=== PATIENT | female | born 1970 | race Hispanic/Latino ===

== ENCOUNTER 2018-01-25 08:51 | Inpatient (IN) | payer BC ==
[2018-01-25] MEDS ORDERED: Sodium Chloride 0.9% 1,000 ML IV STA (09:34)
--- NOTE | 2018-01-25 10:04 | ED PDOC ---
HPI: Abdomen Time Seen by Provider: 01/25/18 09:07 Chief Complaint (Nursing): Abdominal Pain Chief Complaint (Provider): Abdominal Pain History Per: Patient History/Exam Limitations: no limitations Onset/Duration Of Symptoms: Hrs (this morning) Additional Complaint(s): Patient is a 47 y/o female with no significant past medical history who presents to the ED complaining of right sided abdominal pain, that was sudden and started earlier this morning. Patient reports the pain starts in her right abdomen and radiates to her back. Patient also states that she has nausea and 3 episodes of non bloody vomiting. She denies any urinary symptoms, shortness of breath, chest pain, or diarrhea. Additionally, patient is complaining of cold-like symptoms such as cough, congestion and runny nose, since yesterday. No dysuria. No weakness. PMD: Dr. Candelaria Past Medical History Reviewed: Historical Data, Nursing Documentation, Vital Signs Vital Signs: Last Vital Signs Temp Pulse Resp BP 105/59 L 01/25/18 09:04 Pulse Ox 97 01/25/18 09:04 - Medical History PMH: Anxiety Other PMH: kidney stones - Surgical History Other surgeries: Hysterectomy - Family History Family History: States: Unknown Family Hx - Allergies Allergies/Adverse Reactions: Allergies Allergy/AdvReac Type Severity Reaction Status Date / Time Sulfa (Sulfonamide Allergy Mild RASH Verified 01/25/18 09:04 Antibiotics) Review of Systems ROS Statement: Except As Marked, All Systems Reviewed And Found Negative ENT: Positive for: Nose Discharge (runny nose), Nose Congestion Cardiovascular: Negative for: Chest Pain Respiratory: Positive for: Cough. Negative for: Shortness of Breath Gastrointestinal: Positive for: Nausea, Vomiting, Abdominal Pain. Negative for: Diarrhea Genitourinary Female: Negative for: Dysuria, Frequency, Incontinence Physical Exam - Reviewed Nursing Documentation Reviewed: Yes Vital Signs Reviewed: Yes - Physical Exam Appears: Positive for: Non-toxic, No Acute Distress Head Exam: Positive for: ATRAUMATIC, NORMAL INSPECTION, NORMOCEPHALIC Skin: Positive for: Normal Color, Warm, DRY Eye Exam: Positive for: EOMI, Normal appearance, PERRL ENT: Positive for: Nasal Congestion Neck: Positive for: Normal, Painless ROM, Supple Cardiovascular/Chest: Positive for: Regular Rate, Rhythm. Negative for: Murmur Respiratory: Positive for: Normal Breath Sounds. Negative for: Respiratory Distress Gastrointestinal/Abdominal: Positive for: Soft, Tenderness (mild suprapubic tenderness) Back: Positive for: Normal Inspection. Negative for: L CVA Tenderness, R CVA Tenderness Extremity: Positive for: Normal ROM. Negative for: Pedal Edema, Deformity Neurologic/Psych: Positive for: Alert, Oriented. Negative for: Motor/Sensory Deficits - Laboratory Results Result Diagrams: 01/25/18 09:56 01/25/18 09:56 Interpretation Of Abn Labs: no acute Urine dip results: Negative for: Leukocyte Esterase, Nitrate - ECG O2 Sat by Pulse Oximetry: 97 (RA) Pulse Ox Interpretation: Normal - CT Scan/US ct Other Rad Studies (CT/US): Read By Radiologist Other Rad Interpretation: can't see appendix; no stone - Progress ED Course And Treament: 1300: Surgery paged to evaluate pt. 1517: Surgery will take pt. to the OR for appendicitis. Pt. agrees. NPO. Will give zosyn. Medical Decision Making Medical Decision Making: Time: 09:34 Initial Impression: Abdominal pain and cough with congestion Initial Plan: --CT Abd and Pelvis --BMP --Urine dipstick --CBC w/ diff --IV fluids --Toradol 15 mg --Zofran 4 mg --Influenza A B Scribe Attestation: Documented by Andi De La Garza acting as a scribe for Enzo Howe MD Provider Scribe Attestation: All medical record entries made by the Scribe were at my direction and personally dictated by me. I have reviewed the chart and agree that the record accurately reflects my personal performance of the history, physical exam, medical decision making, and the department course for this patient. I have also personally directed, reviewed, and agree with the discharge instructions and disposition. Disposition - Clinical Impression Clinical Impression: Appendicitis - Patient ED Disposition Is Patient to be Admitted: Yes Counseled Patient/Family Regarding: Studies Performed, Diagnosis - Disposition Disposition Time: 15:20 Condition: FAIR - Pt Status Changed To: Hospital Disposition Of: Inpatient - Admit Certification Admit to Inpatient:: After my assessment, the patient will require hospitalization for at least two midnights. This is because of the severity of symptoms shown, intensity of services needed, and/or the medical risk in this patient being treated as an outpatient. - POA Present On Arrival: None
[2018-01-25 10:25] LABS: BASO # 0.1 K/uL (0.0-0.2); BASO % 0.5 % (0.0-2.0); EOS # 0.1 K/uL (0.0-0.7); EOS % 0.6 % (0.0-4.0); HEMOGLOBIN 13.3 g/dL (12.0-16.0); LYMPH # 0.5 K/uL (1.0-4.3); LYMPH % 4.9 % (20.0-40.0); MEAN CELL VOLUME 90.5 fl (81.0-99.0); MEAN CORPUSCULAR HEMOGLOBIN 31.6 pg (27.0-31.0); MEAN CORPUSCULAR HGB CONC 34.9 g/dL (33.0-37.0); MEAN PLATELET VOLUME 8.2 fl (7.2-11.7); MONO # 0.5 K/uL (0.0-0.8); MONO % 4.6 % (0.0-10.0); NEUT # 8.8 K/uL (1.8-7.0); NEUT % 89.4 % (50.0-75.0); PLATELET COUNT 211 K/uL (130-400); RBC 4.21 Mil/uL (3.80-5.20); RED CELL DISTRIBUTION WIDTH 13.1 % (11.5-14.5); WHITE BLOOD COUNT 9.9 K/uL (4.8-10.8)
[2018-01-25 10:36] LABS: BLOOD UREA NITROGEN 10 mg/dl (7-17); GFR NON-AFRICAN AMERICAN > 60
--- NOTE | 2018-01-25 12:24 | CT ---
Date of service: 01/25/2018 PROCEDURE: CT Abdomen and Pelvis without intravenous contrast HISTORY: R/O stone COMPARISON: Comments: Study marked for PA review . TECHNIQUE: Technique. Contrast dose: None Radiation dose: Total exam DLP = 526 mGy-cm. This CT exam was performed using one or more of the following dose reduction techniques: Automated exposure control, adjustment of the mA and/or kV according to patient size, and/or use of iterative reconstruction technique. FINDINGS: LOWER THORAX: Unremarkable. LIVER: Unremarkable. No gross lesion or ductal dilatation. GALLBLADDER AND BILE DUCTS: Unremarkable. PANCREAS: Unremarkable. No gross lesion or ductal dilatation. SPLEEN: Unremarkable. ADRENALS: Unremarkable. No mass. KIDNEYS AND URETERS: Unremarkable. No hydronephrosis. No obstructing renal or ureteral calculi VASCULATURE: Bilateral hemipelvic phleboliths. No aortic aneurysm. BOWEL: Unremarkable. No obstruction. No gross mural thickening. APPENDIX: The appendix is not identified with certainty. There are tubular right hemipelvic findings probably relating to collapsed distal small bowel loops. However clinical correlation is needed as a normal-appearing appendix cannot be from this. PERITONEUM: Unremarkable. No free fluid. No free air. LYMPH NODES: Unremarkable. No enlarged lymph nodes. BLADDER: Unremarkable. REPRODUCTIVE: Unremarkable. BONES: No acute fracture. OTHER FINDINGS: None. IMPRESSION: No obstructing urolithiasis. No hydronephrosis or hydroureter. Indeterminate 2 tubular structures in the right hemipelvis; possibly relating to unopacified decompressed small bowel loops. Clinical correlation and close follow-up is essential as a normal separate appearing right appendix cannot be identified with certainty. Comments: Study marked for PA review .
[2018-01-25 13:17] LABS: BANDS 2 % (0-2); LYMPHOCYTE 4 % (20-50); MONOCYTE 2 % (0-10); NEUTROPHIL 92 % (42-75); PLATELET ESTIMATE NORMAL (NORMAL); TOTAL CELLS COUNTED 100
[2018-01-25] MEDS ORDERED: Piperacillin/Tazobact 3.375 GM in Sodium Chloride 0.9% 100 ML IV STA (15:19)
[2018-01-25] MEDS ORDERED: Piperacillin/Tazobact 3.375 gm Inj IVPB ONE (15:38)
--- NOTE | 2018-01-25 16:03 | CP.PCM.HP ---
History of Present Illness - History of Present Illness History of Present Illness: Surgery: Dr. Ruiz CC: Abd pain HPI: 47F presents with abd pain starting this morning. Pain was initially in RUQ, but migrated to RLQ. Pain is constant and described as cramp like. Pt has nausea with 3 episodes of vomiting, non-bloody. Denies diarrhea. She reports subjective fever and chills. She has no dysuria/hematuria, or vaginal discharge. PMH: anxiety PSH: Hysterectomy Meds: MAR reviewed ALL: Sulfa Social: +Tobacco, wine, no drugs Fhx: Non-contributory Present on Admission - Present on Admission Any Indicators Present on Admission: No Review of Systems - Review of Systems All systems: reviewed and no additional remarkable complaints except (HPI) Past Patient History - Past Social History Smoking Status: Current Some Days Smoker - PSYCHIATRIC Hx Anxiety: Yes - SURGICAL HISTORY Hx Hysterectomy: Yes - ANESTHESIA Hx Anesthesia: Yes Hx Anesthesia Reactions: No Meds Allergies/Adverse Reactions: Allergies Allergy/AdvReac Type Severity Reaction Status Date / Time Sulfa (Sulfonamide Allergy Mild RASH Verified 01/25/18 09:04 Antibiotics) Physical Exam - Constitutional Appears: Non-toxic, No Acute Distress - Head Exam Head Exam: ATRAUMATIC, NORMOCEPHALIC - Eye Exam Eye Exam: EOMI - ENT Exam ENT Exam: Mucous Membranes Moist - Neck Exam Neck exam: Positive for: Full Rom - Respiratory Exam Respiratory Exam: NORMAL BREATHING PATTERN. absent: Accessory Muscle Use, Respiratory Distress - GI/Abdominal Exam GI & Abdominal Exam: Rebound (+Rovsing), Soft, Tenderness (RLQ). absent: Distended, Firm, Guarding, Rigid - Extremities Exam Extremities exam: Negative for: calf tenderness, pedal edema - Neurological Exam Neurological exam: Alert, Oriented x3 - Psychiatric Exam Psychiatric exam: Normal Affect, Normal Mood Results - Vital Signs Recent Vital Signs: Last Vital Signs Temp 98.4 F 01/25/18 14:05 Pulse 72 01/25/18 14:05 Resp 16 01/25/18 14:05 BP 115/73 01/25/18 14:05 Pulse Ox 97 01/25/18 15:20 - Labs Result Diagrams: 01/25/18 09:56 01/25/18 09:56 Labs: Laboratory Results - last 24 hr 01/25/18 01/25/18 01/25/18 09:52 09:56 09:56 WBC 9.9 RBC 4.21 Hgb 13.3 Hct 38.1 MCV 90.5 MCH 31.6 H MCHC 34.9 RDW 13.1 Plt Count 211 MPV 8.2 Neut % (Auto) 89.4 H Lymph % (Auto) 4.9 L [place] % (Auto) 4.6 Eos % (Auto) 0.6 Baso % (Auto) 0.5 Neut # (Auto) 8.8 H Lymph # (Auto) 0.5 L [place] # (Auto) 0.5 Eos # (Auto) 0.1 Baso # (Auto) 0.1 Neutrophils % (Manual) 92 H Band Neutrophils % 2 Lymphocytes % (Manual) 4 L Monocytes % (Manual) 2 Platelet Estimate Normal RBC Morphology Normal Sodium 136 Potassium 3.8 Chloride 103 Carbon Dioxide 28 Anion Gap 9 L BUN 10 Creatinine 0.6 L Est GFR ( Amer) > 60 Est GFR (Non-Af Amer) > 60 Random Glucose 115 H Calcium 9.0 Influenza Typ A,B (EIA) Negative for flu a/b - Imaging and Cardiology CT scan - abdomen Status: Image reviewed by me, Report reviewed by me Assessment & Plan - Assessment and Plan (Free Text) Assessment: 47F w. RLQ pain consistent w. appendicitis -NPO -IVF -abx -OR tonight for lap appy, consent in chart, risks benefits d/w pt -d/w attending Zemaitis PGY4 Decision To Admit - Pt Status Changed To: Hospital Disposition Of: Inpatient - Admit Certification Admit to Inpatient:: After my assessment, the patient will require hospitalization for at least two midnights. This is because of the severity of symptoms shown, intensity of services needed, and/or the medical risk in this patient being treated as an outpatient. - . Bed Request Type: Med/Surg Admitting Physician: Ellis Mariee
[2018-01-25 16:15] LABS: VENOUS BLOOD GAS BASE EXCESS 0.8 mmol/L (0.0-2.0); VENOUS BLOOD GAS PCO2 49 mmHg (40-60); VENOUS BLOOD GAS PO2 17 mm/Hg (30-55); VENOUS BLOOD PH 7.35 (7.32-7.43)
[2018-01-25] MEDS ORDERED: Lactated Ringer's 1,000 ML IV SCH (16:30)
[2018-01-25] MEDS ORDERED: Morphine 4 MG/ML VIAL ONE (16:42)
[2018-01-25] MEDS ORDERED: Succinylcholine 200 mg/10 ml Inj IV ONE (18:27)
[2018-01-25] MEDS ORDERED: Propofol 10 mg/ml Inj (20 ML) ONE (18:27)
[2018-01-25] MEDS ORDERED: Lidocaine 4% (Laryng-O-Jet) Kit MM ONE (18:27)
[2018-01-25] MEDS ORDERED: Rocuronium 10 mg/ml (5 ml) ONE (18:27)
[2018-01-25] MEDS ORDERED: Lidocaine 1% w Epi 1:100,000 Inj ONE (18:48)
[2018-01-25] MEDS ORDERED: Bupivacaine HCl 0.25% PF (30 ml) Inj ONE (18:48)
[2018-01-25] MEDS ORDERED: Lactated Ringer's 1,000 ML IV ONE ×2 (19:30→20:07)
[2018-01-25] MEDS ORDERED: Midazolam 2 MG/2 ML VIAL ONE (19:37)
[2018-01-25] MEDS ORDERED: Dexamethasone 4 mg/1 ml ONE (19:42)
[2018-01-25] MEDS ORDERED: Neostigmine 1:1000 (1 mg/ml) Inj ONE (20:27)
--- NOTE | 2018-01-25 21:12 | PCM.SURG1 ---
Surgeon's Initial Post Op Note - Surgeon's Notes Surgeon: Dr. Mariee [employer] Operations Coordinator: Dr. Suárez PGY1 Type of Anesthesia: General Endo Pre-Operative Diagnosis: Appendicitis Operative Findings: see operative dictation note Post-Operative Diagnosis: Appendicitis Operation Performed: laparascopic appendectomy Specimen/Specimens Removed: appendix Estimated Blood Loss: EBL {In ML}: 5 Blood Products Given: N/A Drains Used: No Drains Post-Op Condition: Good Date of Surgery/Procedure: 01/25/18 Time of Surgery/Procedure: 21:12
[2018-01-25] MEDS: Piperacillin/Tazobact 3.375 GM in Sodium Chloride 0.9% 100 ML IVPB SCH (21:48)
[2018-01-26] MEDS: Piperacillin/Tazobact 3.375 GM in Sodium Chloride 0.9% 100 ML IVPB SCH (04:18)
[2018-01-26] MEDS: Lactated Ringer's 1,000 ML IV SCH ×2 (04:18→07:35)
--- NOTE | 2018-01-26 07:56 | CARD ---
APPROVED REPORT Date of service: 01/25/2018 EKG Measurement Heart [id number] <Conclusion> Normal sinus rhythm Normal ECG
[2018-01-26 08:24] VITALS: BP 98/53; PULSE 59; RESP 19; TEMP 97.6; O2SAT 98
--- NOTE | 2018-01-26 08:51 | CP.PCM.DIS ---
Provider - Provider Date of Admission: 01/25/18 15:18 Attending physician: Ellis Mariee MD Time Spent in preparation of Discharge (in minutes): 30 Diagnosis - Discharge Diagnosis (1) Appendicitis Status: Acute Hospital Course - Lab Results Lab Results: Most Recent Lab Values WBC 9.9 K/uL (4.8-10.8) 01/25/18 09:56 RBC 4.21 Mil/uL (3.80-5.20) 01/25/18 09:56 Hgb 13.3 g/dL (12.0-16.0) 01/25/18 09:56 Hct 38.1 % (34.0-47.0) 01/25/18 09:56 MCV 90.5 fl (81.0-99.0) 01/25/18 09:56 MCH 31.6 pg (27.0-31.0) H 01/25/18 09:56 MCHC 34.9 g/dL (33.0-37.0) 01/25/18 09:56 RDW 13.1 % (11.5-14.5) 01/25/18 09:56 Plt Count 211 K/uL (130-400) 01/25/18 09:56 MPV 8.2 fl (7.2-11.7) 01/25/18 09:56 Neut % (Auto) 89.4 % (50.0-75.0) H 01/25/18 09:56 Lymph % (Auto) 4.9 % (20.0-40.0) L 01/25/18 09:56 [place] % (Auto) 4.6 % (0.0-10.0) 01/25/18 09:56 Eos % (Auto) 0.6 % (0.0-4.0) 01/25/18 09:56 Baso % (Auto) 0.5 % (0.0-2.0) 01/25/18 09:56 Neut # (Auto) 8.8 K/uL (1.8-7.0) H 01/25/18 09:56 Lymph # (Auto) 0.5 K/uL (1.0-4.3) L 01/25/18 09:56 [place] # (Auto) 0.5 K/uL (0.0-0.8) 01/25/18 09:56 Eos # (Auto) 0.1 K/uL (0.0-0.7) 01/25/18 09:56 Baso # (Auto) 0.1 K/uL (0.0-0.2) 01/25/18 09:56 Neutrophils % (Manual) 92 % (42-75) H 01/25/18 09:56 Band Neutrophils % 2 % (0-2) 01/25/18 09:56 Lymphocytes % (Manual) 4 % (20-50) L 01/25/18 09:56 Monocytes % (Manual) 2 % (0-10) 01/25/18 09:56 Platelet Estimate Normal (NORMAL) 01/25/18 09:56 RBC Morphology Normal (NORMAL) 01/25/18 09:56 pO2 17 mm/Hg (30-55) L 01/25/18 16:07 VBG pH 7.35 (7.32-7.43) 01/25/18 16:07 VBG pCO2 49 mmHg (40-60) 01/25/18 16:07 VBG HCO3 23.5 mmol/L 01/25/18 16:07 VBG Total CO2 28.6 mmol/L (22-28) H 01/25/18 16:07 VBG O2 Sat (Calc) 22.0 % (40-65) L 01/25/18 16:07 VBG Base Excess 0.8 mmol/L (0.0-2.0) 01/25/18 16:07 VBG Potassium 3.5 mmol/L (3.6-5.2) L 01/25/18 16:07 Sodium 136.0 mmol/L (132-148) 01/25/18 16:07 Chloride 104.0 mmol/L (98-107) 01/25/18 16:07 Glucose 108 mg/dL (65-105) H 01/25/18 16:07 Lactate 0.7 mmol/L (0.7-2.1) 01/25/18 16:07 FiO2 21.0 % 01/25/18 16:07 Sodium 136 mmol/l (132-148) 01/25/18 09:56 Potassium 3.8 MMOL/L (3.6-5.0) 01/25/18 09:56 Chloride 103 mmol/L (98-107) 01/25/18 09:56 Carbon Dioxide 28 mmol/L (22-30) 01/25/18 09:56 Anion Gap 9 (10-20) L 01/25/18 09:56 BUN 10 mg/dl (7-17) 01/25/18 09:56 Creatinine 0.6 mg/dl (0.7-1.2) L 01/25/18 09:56 Est GFR ( Amer) > 60 01/25/18 09:56 Est GFR (Non-Af Amer) > 60 01/25/18 09:56 Random Glucose 115 mg/dL (65-105) H 01/25/18 09:56 Calcium 9.0 mg/dL (8.4-10.2) 01/25/18 09:56 Venous Blood Potassium 3.5 mmol/L (3.6-5.2) L 01/25/18 16:07 Influenza Typ A,B (EIA) Negative for flu a/b (NEGATIVE) 01/25/18 09:52 - Hospital Course Hospital Course: 47F presented w. acute appendicitis, underwent lap appy. Post-op course uncomplicated. Pain controlled, tolerating diet, no N/V. Ambulating w. out difficulty. Pt clear for D/C from surgical standpoint. Discharge Exam - Head Exam Head Exam: ATRAUMATIC, NORMOCEPHALIC - Eye Exam Eye Exam: EOMI - ENT Exam ENT Exam: Mucous Membranes Moist - Neck Exam Neck exam: Full Rom - Respiratory Exam Respiratory Exam: NORMAL BREATHING PATTERN. absent: Accessory Muscle Use, Respiratory Distress - Cardiovascular Exam Cardiovascular Exam: REGULAR RHYTHM - GI/Abdominal Exam GI & Abdominal Exam: Soft, Tenderness (Nicole-incisional). absent: Distended, Firm, Guarding, Rebound, Rigid Additional comments: incisions C/D/I - Neurological Exam Neurological exam: Alert, Oriented x3 - Psychiatric Exam Psychiatric exam: Normal Affect, Normal Mood - Skin Skin Exam: Dry, Normal Color, Warm Discharge Plan - Discharge Medications Prescriptions: Ibuprofen 600 mg PO Q6 PRN #20 tablet PRN Reason: Pain, Moderate (4-7) Levofloxacin [Levaquin] 500 mg PO DAILY #7 tablet Metronidazole [Flagyl] 500 mg PO Q8H #21 tablet - Follow Up Plan Condition: STABLE Disposition: HOME/ ROUTINE Patient education suggested?: Yes Instructions: Appendectomy, Laparoscopic Surgery, Appendicitis, Adult (DC) Additional Instructions: Follow up with Dr. Mariee in 1 week Take medication as instructed No heavy lifting >15-20lbs for 4 weeks Referrals: Ellis Mariee MD [Staff Provider] -
--- NOTE | 2018-03-09 17:49 | OP ---
PROCEDURE DATE: 01/25/2018 PREOPERATIVE DIAGNOSES: 1. Acute appendicitis. 2. Incarcerated umbilical hernia. POSTOPERATIVE DIAGNOSES: 1. Acute appendicitis. 2. Incarcerated umbilical hernia. SURGERIES: 1. Laparoscopic appendectomy. 2. Laparoscopic enterolysis. 3. Laparoscopic partial cecectomy. 4. Repair of incarcerated umbilical hernia. 5. Bilateral ultrasound-guided transversus abdominis plane block anesthesia. SURGEON: Ellis Mariee MD ANESTHESIA: General endotracheal. ESTIMATED BLOOD LOSS: 10 mL. INTRAVENOUS FLUIDS: 1 liter of Ringer's lactate. COMPLICATIONS: None. DRAINS: None. IMPLANTS: None. DISPOSITION: Stable, extubated to recovery room. CLINICAL INFORMATION: Mr. Dorantes is a 47-year-old male who experienced a acute onset right lower quadrant abdominal pain radiating to the umbilicus and the right side of the pelvis over the last 48 hours, which progressively escalated, then was accompanied by nausea, malaise, and inability to tolerate p.o. Her symptoms progressed to the point that she visited the [facility] Emergency Room for further care. Upon arrival, the clinical exam was significant for right lower quadrant tenderness and guarding and less so in the periumbilical area. Also was found to have a small incarcerated umbilical hernia. The white blood count was elevated and a CT scan of the abdomen and pelvis showed that the patient had acute appendicitis. Based on these findings, the patient was taken emergently to the operating room for further surgical intervention. INTRAOPERATIVE FINDINGS: The findings appeared to be enlarged, elongated, thickened with inflamed mesoappendix extending all the way to the base of the appendix and the surrounding cecum. There were multiple adhesions over the previous surgeries in the pelvis. The patient also had incarcerated umbilical hernia with preperitoneal fat and omental contents. DESCRIPTION OF THE SURGERY: The patient was brought to the operating room, placed on the operating table in the supine position. After smooth induction of general endotracheal anesthesia, Venodyne boots were placed in both legs, and prophylactic IV antibiotics were given. The entire abdomen was prepped and draped in the usual sterile fashion. The area right adjacent to the umbilicus and inferior to that over the incarcerated umbilical hernia was infiltrated with local anesthetic, which comprised of 0.5% Marcaine and 1% lidocaine with epinephrine in equal volumes. A 15-blade was used to perform a vertical incision with sign of inferior border of umbilicus and extending enough to three quater of an inch ____. The incision was brought down to the subcutaneous tissue using Bovie electrocautery. Dissection continued until the hernia sac of the incarcerated umbilical hernia was identified. It was freed from its surrounding attachments to the subcutaneous fat and incised. Its contents mainly preperitoneal fat and omentum were freed from its attachments to the inner surface of the hernia sac and returned back to the peritoneal cavity. A 0-Vicryl stitch was placed on each side of the incised fascia. A Naranjo trocar was inserted under direct visualization. The obturator was removed. The port was secured to the 0-Vicryl stay sutures and was connected to the port and pneumoperitoneum up to 15 mmHg was generated. The patient's position was changed to Trendelenburg with the left side down exposing the right lower quadrant. A 10-mm 30 degree laparoscopic video camera was inserted, and the abdomen was inspected. There are dense adhesions in the pelvic and right lower quadrant area. The appendix appeared to be partly concealed by the cecum, terminal ileum and the omentum adherent to the right lateral abdominal wall. It can be partly visualized and appeared to be thickened, inflamed and large with inflamed mesoappendix and inflammation and the infection extending all the way to the base of the appendix and the surrounding cecum. Three 5-mm ports were inserted in the lower abdomen after infiltrating the skin with the same local anesthetic and incising it with a #15-blade. Through the inferior port, endograsper and the 5-mm LigaSure alternating with a EndoSure ___ Bovie electrocautery were used to take down all the adhesions from the right side of the pelvis and detaching the appendix and the cecum from its attachment to the right lateral abdominal wall. By doing so and then taking down the adhesions from the omentum, the cecum and terminal ileum the appendix was visualized as well as mesoappendix in its entire length. The appendix appeared to be enlarged, distended, elongated and inflamed with a corresponding mesoappendix also being significantly inflamed and the infection of the inflammation extending all the way to the base of the appendix and further into the surrounding cecum. The 5 mm LigaSure was used to secure the mesoappendix in the sequential fashion all the way to the base of the appendix and the cecum. The camera was switched to a 5-mm 30-degree and inserted through the left lower quadrant port. The appendix was grasped from its mid portion using endograsper were retracted upwards and outwards exposing its base on the surrounding cecum. A 45 mm Endo CAMRYN was inserted through the infraumbilical port and three staple lines and one staple line was fired across the base of the appendix and surrounding cecum when encompassing part of the cecum and two more were necessary to ensure that the adequate cecum surrounding the area of the inflamed appendix were appeared healthy was included in this person. The specimen was placed in the Endobag, removed from the operating field and sent to pathology for appropriate label and for permanent sections. The abdomen was irrigated with copious amount of warm normal saline. The area of bleeding from the mesoappendix was secured with a 5 mm titanium clips. Again the abdomen was irrigated. There was no evidence of continual bleeding or sulcus discharge from the staple line. The infraumbilical port was removed, and the fascial defect from the incarcerated umbilical hernia and was closed with interrupted 0 Vicryl sutures in a tension-free fashion. The integrity of the fascia closure was checked by inserting a 5-mm 30-degree laparoscopic video camera through the left lower quadrant port. There was also confirmed that there was no evidence of bleeding on the port side and entrapment of bowel or omental. The remaining two 5-mm ports were removed under direct laparoscopic visualization, and there was no evidence of bleeding from the port sites. All skin incisions were closed with 4-0 continuous subcuticular Monocryl stitch and reinforced with Dermabond. The surgery was to perform ultrasound-guided bilateral transversus abdominis plane block anesthesia with the help of a small parts on the side probe which was directed at the border of the similar line ultrasound-guided using a 10 gauge needle, 10 mL of Marcaine 0.5% were injected in the transversus abdominis plane bilaterally. At the end of the surgery, the counts of the instruments, gauze, and needles were correct x2. The patient tolerated the surgery well and was transferred in stable condition to the recovery room. Ellis Mariee MD [facility] # [id number]
== END 2018-01-26 10:38 | disposition home or self-care (01) | DRG 330 ==
LOC: H.ER 08:51 → H.ERHOLD 15:18 → H.MEDSURG1 17:15
PROVIDERS: ADMIT Specialist; ATTEND Specialist
PROC: 0DBH4ZZ Excision of Cecum, Percutaneous Endoscopic Approach (ICD-10-PCS; 2018-01-25)
PROC: 0WQF4ZZ Repair Abdominal Wall, Percutaneous Endoscopic Approach (ICD-10-PCS; 2018-01-25)
PROC: 0DTJ4ZZ Resection of Appendix, Percutaneous Endoscopic Approach (ICD-10-PCS; principal; 2018-01-25 19:30)
DX: K35.80 Unspecified acute appendicitis (principal); K42.0 Umbilical hernia with obstruction, without gangrene; F41.9 Anxiety disorder, unspecified; F17.210 Nicotine dependence, cigarettes, uncomplicated; Z87.442 Personal history of urinary calculi; Z90.710 Acquired absence of both cervix and uterus; K66.0 Peritoneal adhesions (postprocedural) (postinfection); R05 Cough